=== PATIENT | female | born 1930 | race Two or more races ===

== ENCOUNTER → 2018-11-04 | Outpatient (CLI) | payer MEDICARE, OTHER | END | disposition home or self-care (01) | LOC: RADPV 10:53 | PROVIDERS: ATTEND Internal Medicine Nephrology | DX: N28.1 Cyst of kidney, acquired (principal); I12.9 Hypertensive chronic kidney disease with stage 1 through stage 4 chronic kidney disease, or unspecified chronic kidney disease; N18.4 Chronic kidney disease, stage 4 (severe); J41.0 Simple chronic bronchitis; M17.10 Unilateral primary osteoarthritis, unspecified knee | CPT/HCPCS: 76770 ==